=== PATIENT | male | born 1965 | race Two or more races ===

== ENCOUNTER 2024-10-31 08:05 | Day surgery (SDC) | payer MEDICARE, MEDICAID, SELFPAY ==
[2024-10-30 14:28] VITALS: BMI 26.4
[2024-10-31] VITALS (11 sets, daily range): BP systolic 104–136; BP diastolic 74–91; PULSE 42–63; RESP 12–18; TEMP 36.5–36.6; O2SAT 95–100; BMI 26.2
--- NOTE | 2024-10-31 08:41 | SUR.PREOP ---
pt is developmentally delayed and unable to make decisions for self. pt is accompanied by his brother Miguel Pimentel, who has been making decisions for patient since their mother . he is up to date with patients medical history and appointments. pt is also living with Miguel. Miguel has been educated by the charge nurse and the [facility] underwriter on the importance of becoming next of kin to be able to make decisions for kurt. Pt brother stated he will be contacting [facility] social work coordinator today to get that process going.
[2024-10-31] MEDS: MIDAZOLAM INJ 1 MG/ML VIAL 2 ML (ASD USE ONLY) 2 MG IV (10:11)
[2024-10-31] MEDS: fentaNYL CIT INJ 50 mCg/ML AMP 2ML (ASD USE ONLY) IV (10:12)
[2024-10-31] MEDS: SIMETHICONE 40 MG/0.6 ML ORAL SYRINGE PO ×2 (10:30)
--- NOTE | 2024-10-31 12:27 | SUR.PHASEII ---
1046: Pt received in [place] via gurney. Pt groggy, but awake. Resp even, unlabored. VS stable. Denies pain. 1110: Pt more awake, alert. Sitting up tolerating po fluids with no difficulty swallowing and no n/v. 1125: Pt fully awake, oriented. Pt assisted to restroom. Ambulation steady. Brother stated understanding of discharge instructions. Pt discharged from [facility] in stable condition.
== END 2024-10-31 11:25 | disposition home or self-care (01) ==
PROVIDERS: PCP Family Medicine; Referring Provider Internal Medicine Gastroenterology; Visit Provider Internal Medicine Gastroenterology
PROC: 0DBE8ZX Excision of Large Intestine, Via Natural or Artificial Opening Endoscopic, Diagnostic (ICD-10-PCS; CPT 45380; principal; 2024-10-31 08:15)
DX: Z12.11 Encounter for screening for malignant neoplasm of colon (principal); K57.30 Diverticulosis of large intestine without perforation or abscess without bleeding
CPT/HCPCS: G0121; A4217; J2250; J3010; A9270